=== PATIENT | male | born 1975 | race Caucasian/White ===

== ENCOUNTER 2017-01-10 15:03 | Emergency (ER) | payer MEDICAID ==
[~2017-01-10] VITALS: Ht 182.9 cm; Wt 92.0 kg
[2017-01-10 15:11] VITALS: BP 118/89
[2017-01-10] MEDS ORDERED: LIDOCAINE 1%, 20ML ONE (15:50)
[2017-01-10] MEDS ORDERED: DIPH,PERTUSS(ACELL),TET VAC/PF 0.5 ML IM-VACC ONE ×2 (15:50→16:00)
[2017-01-10] MEDS ORDERED: LIDOCAINE 1%, 10ML INFIL ONE (16:00)
== END 2017-01-10 16:29 | disposition home or self-care (01) ==
LOC: ED 16:20
DX: L03.031 Cellulitis of right toe (principal)
CPT/HCPCS: 10060; 73140; 82962; 90471; 90715; 99284; J3490

== ENCOUNTER 2017-04-18 08:39 | Emergency (ER) | payer MEDICAID ==
[~2017-04-18] VITALS: Ht 182.9 cm; Wt 87.6 kg
[2017-04-18 08:40] VITALS: BP 137/83
== END 2017-04-18 09:57 | disposition home or self-care (01) ==
LOC: ED 09:53
DX: L03.012 Cellulitis of left finger (principal); F17.210 Nicotine dependence, cigarettes, uncomplicated
CPT/HCPCS: 99283

== ENCOUNTER 2017-04-25 12:45 | Emergency (ER) | payer MEDICAID ==
[~2017-04-25] VITALS: Ht 182.9 cm; Wt 83.5 kg
[2017-04-25] MEDS ORDERED: LIDOCAINE 1%, 20ML SQ ONE (14:00)
[2017-04-25 14:31] VITALS: BP 153/72
== END 2017-04-25 14:34 | disposition home or self-care (01) ==
LOC: ED 14:28
DX: L03.012 Cellulitis of left finger (principal)
CPT/HCPCS: 10060; 99283

== ENCOUNTER 2019-04-10 06:47 | Emergency (ER) | payer MEDICAID ==
[~2019-04-10] VITALS: Ht 182.9 cm; Wt 81.2 kg
--- NOTE | 2019-04-10 06:50 | NUR ---
NIL [phone]
[2019-04-10 06:57] VITALS: BP 130/73
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
[2019-04-10] MEDS ORDERED: LIDOCAINE-MPF 1%, 2ML ONE (07:20)
[2019-04-10] MEDS ORDERED: LIDOCAINE-MPF 1%, 5ML INFIL ONE (07:30)
[2019-04-10] MEDS ORDERED: KETOROLAC 30 MG/1 ML IM ONE (07:30)
[2019-04-10] MEDS ORDERED: KETOROLAC 30 MG/1 ML ONE (07:33)
--- NOTE | 2019-04-10 07:38 | NUR ---
pt medicated per emar. pt tolerated well.
--- NOTE | 2019-04-10 08:18 | NUR ---
Patient given discharge instructions and they have confirmed that they understand the instructions. Patient ambulatory with steady gait.
== END 2019-04-10 08:19 | disposition home or self-care (01) ==
LOC: ED 08:09
DX: M70.21 Olecranon bursitis, right elbow (principal); F17.210 Nicotine dependence, cigarettes, uncomplicated; Z90.89 Acquired absence of other organs; Y93.89 Activity, other specified
CPT/HCPCS: 73080; 96372; 99283; J1885

== ENCOUNTER 2019-06-26 07:36 | Emergency (ER) | payer MEDICAID ==
[~2019-06-26] VITALS: Ht 182.9 cm; Wt 84.0 kg
[2019-06-26 07:44] VITALS: BP 114/73
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
[2019-06-26] MEDS ORDERED: IBUPROFEN 600 MG TABLET PO ONE (08:00)
--- NOTE | 2019-06-26 08:02 | NUR ---
PT ABULATED TO XR WITH TECH. STEADY GAIT.
[2019-06-26] MEDS ORDERED: IBUPROFEN 600 MG TABLET ONE (08:04)
--- NOTE | 2019-06-26 08:09 | NUR ---
PT MEDICATED FOR 7/10 LEFT ARM PAIN.
--- NOTE | 2019-06-26 08:27 | NUR ---
PT DISCHARGED HOME IN A STABLE CONDITION. DC INSTRUCTIONS WERE DISCUSSED WITH PT. PT DENIES ANY FURTHER QUESTIONS OR CONCERNS. PT AMBULATED WITH RN TO DC DESK. STEADY GAIT.
== END 2019-06-26 08:28 | disposition home or self-care (01) ==
LOC: ED 08:14
DX: S40.012A Contusion of left shoulder, initial encounter (principal); Y04.0XXA Assault by unarmed brawl or fight, initial encounter; Y93.89 Activity, other specified; Y92.410 Unspecified street and highway as the place of occurrence of the external cause; Y99.8 Other external cause status
CPT/HCPCS: 99283

== ENCOUNTER 2019-09-09 17:04 | Emergency (ER) | payer MEDICAID ==
[~2019-09-09] VITALS: Ht 182.9 cm; Wt 84.5 kg
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
--- NOTE | 2019-09-09 17:49 | NUR ---
PT RESTING ON GURNEY. NADN. MICHAEL.
[2019-09-09] MEDS ORDERED: CEFTRIAXONE PMX 1GM/50ML 50 ML ONE (18:23)
[2019-09-09] MEDS ORDERED: CEFTRIAXONE PMX 1GM/50ML 50 ML IVPB ONE (18:30)
[2019-09-09] MEDS ORDERED: SODIUM CHLORIDE FLUSH 10ML SYR IVF ONE (18:30)
[2019-09-09 18:32] LABS: BASOPHILS # (AUTO) 0.05 x10^3/uL (0-0.1); BASOPHILS % (AUTO) 0 % (0-1); EOSINOPHILS # (AUTO) 0.19 x10^3/uL (0-0.4); EOSINOPHILS % (AUTO) 2 % (1-7); LYMPHOCYTES # (AUTO) 1.28 x10^3/uL (1-3.4); LYMPHOCYTES % (AUTO) 12 % (22-44); MD NO; MEAN CORPUSCULAR HEMOGLOBIN 27.5 pg (27.5-34.5); MEAN CORPUSCULAR HGB CONC 32.4 g/dL (33.2-36.2); MEAN CORPUSCULAR VOLUME 85.1 fL (81-97); MEAN PLATELET VOLUME 8.4 fL (7.4-10.4); MONOCYTES # (AUTO) 1.01 x10^3/uL (0.2-0.8); MONOCYTES % (AUTO) 9 % (2-9); NEUTROPHILS # (AUTO) 8.45 x10^3/uL (1.8-6.8); NEUTROPHILS % (AUTO) 77 % (42-75); PLATELET COUNT 292 x10^3/uL (130-400); RED BLOOD COUNT 5.49 x10^6/uL (4.38-5.82); RED CELL DISTRIBUTION WIDTH 14.4 % (9.4-14.8)
--- NOTE | 2019-09-09 18:35 | NUR ---
PIV INITIATED. PT PAGE SEBASTIAN. VSS. ESTEVEZ.
[2019-09-09 18:44] LABS: ALBUMIN 2.9 g/dL (3.4-5.0); ANION GAP 6 mmol/L (5-15); CALCIUM 8.1 mg/dL (8.5-10.1); CHLORIDE 107 mmol/L (98-107); CREATININE 0.91 mg/dL (0.7-1.3)
--- NOTE | 2019-09-09 18:47 | NUR ---
PT CHART REVIEWED AND PLACED FOR RECHECK.
--- NOTE | 2019-09-09 18:57 | NUR ---
REPORT GIVEN TO CORNELIUS AGUILAR RN'S.
[2019-09-09 19:03] VITALS: BP 120/72
--- NOTE | 2019-09-09 19:04 | NUR ---
RECEIVED REPORT FROM ALEKSANDRA HILLS. PT LAYING IN BED, VSS, NO SIGNS OF DISTRESS, RESPIRATIONS EVEN AND UNLABORED. LIGHTS OFF AT REQUEST OF THE PT TO PROMOTE REST. CALL LIGHT AND PERSONAL PHONE WITHIN REACH.
== END 2019-09-09 19:15 | disposition home or self-care (01) ==
LOC: ED 19:00
DX: L03.113 Cellulitis of right upper limb (principal); L03.115 Cellulitis of right lower limb
CPT/HCPCS: 36415; 80048; 82040; 83605; 85025; 87040; 96365; 99284; J0696

== ENCOUNTER 2019-11-28 21:46 | Emergency (ER) | payer MEDICAID ==
[~2019-11-28] VITALS: Ht 182.9 cm; Wt 96.8 kg
[2019-11-28] MEDS ORDERED: SODIUM CHLORIDE FLUSH 10ML SYR IVF ONE (23:00)
--- NOTE | 2019-11-28 23:42 | NUR ---
PT WENT TO US
[2019-11-28 23:53] LABS: BASOPHILS # (AUTO) 0.03 x10^3/uL (0-0.1); BASOPHILS % (AUTO) 0 % (0-1); EOSINOPHILS # (AUTO) 0.08 x10^3/uL (0-0.4); EOSINOPHILS % (AUTO) 1 % (1-7); LYMPHOCYTES # (AUTO) 1.65 x10^3/uL (1-3.4); LYMPHOCYTES % (AUTO) 13 % (22-44); MD NO; MEAN CORPUSCULAR HEMOGLOBIN 26.8 pg (27.5-34.5); MEAN CORPUSCULAR HGB CONC 31.9 g/dL (33.2-36.2); MEAN CORPUSCULAR VOLUME 83.9 fL (81-97); MONOCYTES # (AUTO) 1.18 x10^3/uL (0.2-0.8); MONOCYTES % (AUTO) 9 % (2-9); NEUTROPHILS # (AUTO) 9.93 x10^3/uL (1.8-6.8); NEUTROPHILS % (AUTO) 77 % (42-75); PLATELET COUNT 266 x10^3/uL (130-400); RED BLOOD COUNT 5.17 x10^6/uL (4.38-5.82); RED CELL DISTRIBUTION WIDTH 14.5 % (9.4-14.8)
[2019-11-29 00:05] LABS: ALBUMIN 3.5 g/dL (3.4-5.0); ANION GAP 5 mmol/L (5-15); CALCIUM 8.2 mg/dL (8.5-10.1); CHLORIDE 106 mmol/L (98-107)
[2019-11-29 00:09] LABS: ALANINE AMINOTRANSFERASE 26 U/L (12-78); ALKALINE PHOSPHATASE 97 U/L (45-117); BILIRUBIN,TOTAL 0.4 mg/dL (0.2-1.0); CREATININE 0.95 mg/dL (0.7-1.3); TOTAL PROTEIN 7.2 g/dL (6.4-8.2)
--- NOTE | 2019-11-29 00:19 | NUR ---
DR MEEHAN IN ROOM
[2019-11-29] MEDS ORDERED: POTASSIUM CHLORIDE 20 MEQ TAB.ER.PRT ONE (00:30)
[2019-11-29] MEDS ORDERED: POTASSIUM CHLORIDE 20 MEQ TAB.ER.PRT PO ONE (00:30)
[2019-11-29 00:33] VITALS: BP 126/76
== END 2019-11-29 00:49 | disposition home or self-care (01) ==
LOC: ED 11-29 00:45
DX: L03.115 Cellulitis of right lower limb (principal); Z90.89 Acquired absence of other organs
CPT/HCPCS: 36415; 80053; 85025; 99284

== ENCOUNTER 2020-04-28 03:00 | Emergency (ER) | payer MEDICAID ==
[~2020-04-28] VITALS: Ht 182.9 cm; Wt 88.6 kg
[2020-04-28 03:19] VITALS: BP 105/75
== END 2020-04-28 03:53 | disposition home or self-care (01) ==
LOC: ED 03:31
DX: B34.9 Viral infection, unspecified (principal); Z20.822 Contact with and (suspected) exposure to COVID-19; M79.10 Myalgia, unspecified site; R05 Cough; R50.9 Fever, unspecified; J02.9 Acute pharyngitis, unspecified; R00.0 Tachycardia, unspecified; R09.81 Nasal congestion; Z90.89 Acquired absence of other organs; F17.210 Nicotine dependence, cigarettes, uncomplicated
CPT/HCPCS: 87635; 93005; 99284; 99406

== ENCOUNTER 2020-06-15 19:17 | Emergency (ER) | payer MEDICAID ==
[~2020-06-15] VITALS: Ht 182.9 cm; Wt 89.9 kg
[2020-06-15 19:25] VITALS: BP 137/82
[2020-06-15] MEDS ORDERED: LIDOCAINE-MPF 1%, 5ML ONE (19:45)
[2020-06-15] MEDS ORDERED: LIDOCAINE-MPF 1%, 5ML INFIL ONE (20:00)
== END 2020-06-15 20:31 | disposition home or self-care (01) ==
LOC: ED 20:25
DX: L03.011 Cellulitis of right finger (principal); M79.89 Other specified soft tissue disorders; M79.641 Pain in right hand; F17.210 Nicotine dependence, cigarettes, uncomplicated
CPT/HCPCS: 10060; 99283